=== PATIENT | female | born 1935 | race Caucasian/White ===

== ENCOUNTER 2016-11-17 10:36 | Emergency (ER) | payer MEDICARE, OTHER ==
--- NOTE | 2016-11-17 12:53 | UC ---
Complaint Female HPI - HPI Summary HPI Summary: pain and burning with urination for 1 week tried cranberry pills with out relief, no fevers, chills or back pain - History Of Current Complaint Chief Complaint: UCGU Stated Complaint: UTI-TYPE SYMPTOMS Time Seen by Provider: 11/17/16 12:41 Hx Obtained From: Patient ?: No Onset/Duration: Sudden Onset, Lasting Weeks - 1, Still Present Timing: Constant Severity Initially: Moderate Severity Currently: Moderate Pain Intensity: 6 Pain Scale Used: 0-10 Numeric Character: Burning Aggravating Factor(s): Urination Alleviating Factor(s): Nothing Associated Signs And Symptoms: Positive: Negative - Allergies/Home Medications Allergies/Adverse Reactions: Allergies Allergy/AdvReac Type Severity Reaction Status Date / Time No Known Allergies Allergy Verified 11/17/16 12:36 PMH/Surg Hx/FS Hx/Imm Hx Previously Healthy: No Endocrine History Of: Denies: Diabetes, Thyroid Disease Cardiovascular History Of: Reports: Cardiac Disorders - Tachycardia; A-fib, Hypertension - ON MEDS Respiratory History Of: Denies: COPD, Asthma GI/ History Of: Denies: Ulcer - Surgical History Surgical History: Yes Surgery Procedure, Year, and Place: Basal Cell removed from nose. 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 - Family History Known Family History: Positive: Hypertension - Social History Occupation: Retired Lives: With Family Alcohol Use: None Substance Use Type: None Smoking Status (MU): Former Smoker Amount Used/How Often: SOCIALLY When Did the Patient Quit Smoking/Using Tobacco: 45 YEARS AGO Review of Systems Constitutional: Negative Skin: Negative Eyes: Negative ENT: Negative Respiratory: Negative Cardiovascular: Negative Gastrointestinal: Negative Genitourinary: Dysuria, Frequency, Urgency Motor: Negative Neurovascular: Negative Musculoskeletal: Negative Neurological: Negative Psychological: Negative All Other Systems Reviewed And Are Negative: Yes Physical Exam Triage Information Reviewed: Yes Appearance: Well-Appearing, No Pain Distress, Well-Nourished Vital Signs: Initial Vital Signs Temp 97.3 F 11/17/16 12:31 Pulse 80 11/17/16 12:31 Resp 18 11/17/16 12:31 BP 171/90 11/17/16 12:31 Pulse Ox 99 11/17/16 12:31 Vital Signs Reviewed: Yes Eye Exam: Normal Eyes: Positive: Conjunctiva Clear ENT Exam: Normal ENT: Positive: Normal ENT inspection, Hearing grossly normal. Negative: Nasal congestion, Nasal drainage Dental Exam: Normal Neck exam: Normal Neck: Positive: Supple, Nontender, No Lymphadenopathy Respiratory Exam: Normal Respiratory: Positive: Chest non-tender, Lungs clear, Normal breath sounds, No respiratory distress, No accessory muscle use Cardiovascular Exam: Normal Abdominal Exam: Normal Abdomen Description: Positive: Nontender, No Organomegaly, Soft Musculoskeletal Exam: Normal Musculoskeletal: Positive: Strength Intact, ROM Intact, No Edema Neurological Exam: Normal Neurological: Positive: Alert, Muscle Tone Normal Psychological Exam: Normal Skin Exam: Normal Complaint Female Dx - Course Course Of Treatment: increase fluids, keflex, may use azo, follow blood pressure with pcp - Differential Dx/Diagnosis Differential Diagnosis/HQI/PQRI: Renal Colic, Ureteral Stone, Urinary Tract Infection Provider Diagnoses: UTI Discharge - Discharge Plan Condition: Stable Disposition: HOME Prescriptions: Cephalexin CAP* [Keflex CAP*] 500 mg PO BID #14 cap Patient Education Materials: Phenazopyridine (By mouth), Urinary Tract Infection in Women (ED), DASH Eating Plan (ED), Hypertension (ED) Referrals: [facility] [place] [facility] [Outside] - 2 Weeks Non Staff,Doctor [Primary Care Provider] -
[2016-11-17 13:29] VITALS: BP 159/93
--- NOTE | 2016-11-20 09:43 | UC ---
Progress - Progress Note Progress Note: >100k ecoli, culture prescribed & sensitive to cefazolin jonathan ayala md
== END 2016-11-17 13:30 | disposition home or self-care (01) ==
LOC: UCEAST 10:36
DX: N39.0 Urinary tract infection, site not specified (principal); I48.91 Unspecified atrial fibrillation; I10 Essential (primary) hypertension; Z85.828 Personal history of other malignant neoplasm of skin; Z87.891 Personal history of nicotine dependence
CPT/HCPCS: 81003; 87077; 87086; 87186; 99212; G0463

== ENCOUNTER 2017-02-24 15:53 | Emergency (ER) | payer MEDICARE, OTHER ==
[2017-02-24 15:58] VITALS: BP 135/77
--- NOTE | 2017-02-24 16:34 | UC ---
Complaint Female HPI - HPI Summary HPI Summary: Dysuria and frequency, feels just like prior UTIs, starting 5-6 days ago. In the past has had luck with taking cranberry pills and drinking fluids, tried it and her sx this time improved but did not resolve. Now sx are worsening. Denies fever, vomiting, or back pain. - History Of Current Complaint Hx Obtained From: Patient ?: No Onset/Duration: Gradual Onset, Lasting Days Timing: Constant Severity Initially: Moderate Severity Currently: Moderate Character: Burning Aggravating Factor(s): Urination Associated Signs And Symptoms: Negative: Fever, Back Pain, Vaginal Bleeding/ Discharge, Vomiting(# Of Episodes =) <Kylah Charles - Last Filed: 02/24/17 16:27> <Shawna Yo - Last Filed: 02/24/17 17:44> - History Of Current Complaint Chief Complaint: UCGU Stated Complaint: UTI Time Seen by Provider: 02/24/17 16:11 - Allergies/Home Medications Allergies/Adverse Reactions: Allergies Allergy/AdvReac Type Severity Reaction Status Date / Time No Known Allergies Allergy Verified 02/24/17 15:58 PMH/Surg Hx/FS Hx/Imm Hx Cardiovascular History: Atrial Fibrillation Cancer History: Lung Cancer - Surgical History Surgical History: Yes Surgery Procedure, Year, and Place: Basal Cell removed from nose. 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 - Family History Known Family History: Positive: Hypertension - Social History Alcohol Use: None Substance Use Type: None Smoking Status (MU): Former Smoker Amount Used/How Often: SOCIALLY When Did the Patient Quit Smoking/Using Tobacco: 45 YEARS AGO <Kylah Charles - Last Filed: 02/24/17 16:27> Review of Systems Constitutional: Negative Skin: Negative Eyes: Negative ENT: Negative Respiratory: Negative Cardiovascular: Negative Gastrointestinal: Negative Genitourinary: Dysuria, Urgency Motor: Negative Neurovascular: Negative Musculoskeletal: Negative Neurological: Negative Psychological: Negative All Other Systems Reviewed And Are Negative: Yes <Kylah Charles - Last Filed: 02/24/17 16:27> Physical Exam Triage Information Reviewed: Yes Appearance: Well-Appearing, No Pain Distress, Well-Nourished Vital Signs: Initial Vital Signs Temp 98.8 F 02/24/17 15:54 Pulse 75 02/24/17 15:54 Resp 12 02/24/17 15:54 BP 135/77 02/24/17 15:54 Pulse Ox 99 02/24/17 15:54 Vital Signs Reviewed: Yes Eye Exam: Normal, Other - PERRL Eyes: Positive: Conjunctiva Clear ENT Exam: Normal ENT: Positive: Normal ENT inspection, Hearing grossly normal, Pharynx normal, TMs normal Dental Exam: Normal Neck exam: Normal Neck: Positive: Supple, Nontender Respiratory Exam: Normal Respiratory: Positive: Chest non-tender, Lungs clear, Normal breath sounds, No respiratory distress, No accessory muscle use Cardiovascular Exam: Normal Cardiovascular: Positive: RRR, No Murmur Abdomen Description: Positive: Nontender. Negative: CVA Tenderness (R), CVA Tenderness (L) Neurological Exam: Normal Neurological: Positive: Alert Psychological Exam: Normal Skin Exam: Normal <Kylah Charles - Last Filed: 02/24/17 16:27> Vital Signs: Initial Vital Signs Temp 98.8 F 02/24/17 15:54 Pulse 75 02/24/17 15:54 Resp 12 02/24/17 15:54 BP 135/77 02/24/17 15:54 Pulse Ox 99 02/24/17 15:54 <Shawna Yo - Last Filed: 02/24/17 17:44> Complaint Female Dx - Differential Dx/Diagnosis Provider Diagnoses: UTI <Kylah Charles - Last Filed: 02/24/17 16:27> Discharge <Kylah Charles - Last Filed: 02/24/17 16:27> <Shawna Yo - Last Filed: 02/24/17 17:44> - Discharge Plan Condition: Stable Disposition: HOME Prescriptions: Ciprofloxacin HCl [Cipro 500 MG TAB] 500 mg PO BID #14 tab Patient Education Materials: Urinary Tract Infection in Women (ED) Referrals: Non Staff,Doctor [Medical Doctor] - Additional Instructions: Drink plenty of fluids and take your entire course of antibiotics. If you have worsening or recurrent symptoms, please return or see your primary care provider for a recheck. Attestation Statement User Type: Provider - I was available for consult. This patient was seen by the ROBY. The patient was not presented to, seen by, or examined by me. -Michel <Shawna Yo - Last Filed: 02/24/17 17:44>
--- NOTE | 2017-02-27 08:31 | ED ---
Progress - Progress Note Progress Note: urine culture is positive for ESBL E. coli. pt was discharged on Cipro which is resistant. the bacteria is sensitive to bactrim and Augmentin only. pt is to discontinue cipro. a prescription was sent to [facility] for Augmentin 875 mg #20 one po bid. Course/Dx - Diagnoses Provider Diagnoses: Acute UTI
== END 2017-02-24 16:36 | disposition home or self-care (01) ==
LOC: UCEAST 15:53
DX: N39.0 Urinary tract infection, site not specified (principal); Z87.891 Personal history of nicotine dependence; I48.91 Unspecified atrial fibrillation
CPT/HCPCS: 81003; 87077; 87086; 87184; 87186; 99212; G0463

== ENCOUNTER 2017-03-09 10:29 | Emergency (ER) | payer MEDICARE, OTHER ==
--- NOTE | 2017-03-09 13:01 | UC ---
Complaint Female HPI - HPI Summary HPI Summary: 81 YEAR OLD MALE PRESENTS WITH COMPLAINS OF URINARY FREQUENCY/URGENCY/PAIN. - History Of Current Complaint Chief Complaint: UCGU Stated Complaint: URINARY ISSUE Time Seen by Provider: 03/09/17 12:59 Hx Obtained From: Patient ?: No Onset/Duration: Sudden Onset Timing: Constant Severity Initially: Moderate Severity Currently: Moderate Pain Scale Used: 0-10 Numeric - 5 Character: Sharp Aggravating Factor(s): Movement Associated Signs And Symptoms: Positive: Negative - Allergies/Home Medications Allergies/Adverse Reactions: Allergies Allergy/AdvReac Type Severity Reaction Status Date / Time No Known Allergies Allergy Verified 03/09/17 11:57 PMH/Surg Hx/FS Hx/Imm Hx Previously Healthy: Yes - Surgical History Surgical History: Yes Surgery Procedure, Year, and Place: Basal Cell removed from nose. 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 - Family History Known Family History: Positive: Hypertension - Social History Alcohol Use: None Substance Use Type: None Smoking Status (MU): Former Smoker Amount Used/How Often: SOCIALLY When Did the Patient Quit Smoking/Using Tobacco: 45 YEARS AGO Review of Systems Constitutional: Negative Skin: Negative Eyes: Negative ENT: Negative Respiratory: Negative Cardiovascular: Negative Gastrointestinal: Negative Genitourinary: Dysuria, Frequency, Urgency Motor: Negative Neurovascular: Negative Musculoskeletal: Negative Neurological: Negative Psychological: Negative All Other Systems Reviewed And Are Negative: Yes Physical Exam Triage Information Reviewed: Yes Vital Signs: Initial Vital Signs Temp 36.8 C 03/09/17 11:53 Pulse 78 03/09/17 11:53 Resp 16 03/09/17 11:53 BP 163/108 03/09/17 11:53 Pulse Ox 100 03/09/17 11:53 Eye Exam: Normal ENT Exam: Normal Dental Exam: Normal Neck exam: Normal Neck: Positive: 1 Respiratory Exam: Normal Cardiovascular Exam: Normal Abdominal Exam: Normal Musculoskeletal Exam: Normal Neurological Exam: Normal Psychological Exam: Normal Skin Exam: Normal Complaint Female Dx - Differential Dx/Diagnosis Provider Diagnoses: URINARY FREQUENCY. URINARY URGENCY Discharge - Discharge Plan Condition: Stable Disposition: HOME Prescriptions: Nitrofurantoin Monohyd Macro [Macrobid] 100 mg PO BID #14 cap Patient Education Materials: Urinary Tract Infection in Women (ED) Referrals: No Primary Care Phys,NOPCP [Primary Care Provider] -
[2017-03-09 13:21] VITALS: BP 162/104
== END 2017-03-09 13:18 | disposition home or self-care (01) ==
LOC: UCEAST 10:29
DX: R35.0 Frequency of micturition (principal); R39.15 Urgency of urination; R30.0 Dysuria
CPT/HCPCS: 81003; 87077; 87086; 87186; 99212; G0463

== ENCOUNTER 2017-09-28 07:05 | Emergency (ER) | payer MEDICARE, OTHER ==
[2017-09-28 07:20] VITALS: BP 148/92
--- NOTE | 2017-09-28 07:34 | UC ---
Complaint Female HPI - HPI Summary HPI Summary: 1 WEEK OF DYSURIA, FREQUENCY AND URGENCY. NO FEVER, BACK PAIN OR NAUSEA. - History Of Current Complaint Stated Complaint: burning urination Time Seen by Provider: 09/28/17 07:19 Hx Obtained From: Patient Onset/Duration: Gradual Onset, Lasting Days, Still Present Severity Initially: Moderate Severity Currently: Moderate Pain Intensity: 0 Pain Scale Used: 0-10 Numeric Character: Burning Aggravating Factor(s): Urination Alleviating Factor(s): Nothing Associated Signs And Symptoms: Negative: Fever, Back Pain, Vaginal Discharge, Nausea, Vomiting(# Of Episodes =), Genital Swelling, Genital Blisters - Allergies/Home Medications Allergies/Adverse Reactions: Allergies Allergy/AdvReac Type Severity Reaction Status Date / Time No Known Allergies Allergy Verified 09/28/17 07:13 Home Medications: Home Medications Cranberry 400 mg PO DAILY 09/28/17 [History Confirmed 09/28/17] PMH/Surg Hx/FS Hx/Imm Hx Cardiovascular History: Cardiac Disease, Hypertension Cancer History: Lung Cancer - Surgical History Surgical History: Yes Surgery Procedure, Year, and Place: Basal Cell removed from nose. 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 - Family History Known Family History: Positive: Hypertension - Social History Alcohol Use: Weekly Substance Use Type: None Smoking Status (MU): Former Smoker Amount Used/How Often: SOCIALLY When Did the Patient Quit Smoking/Using Tobacco: 45 YEARS AGO Review of Systems Constitutional: Negative Respiratory: Negative Cardiovascular: Negative Gastrointestinal: Negative Genitourinary: Dysuria, Frequency, Urgency All Other Systems Reviewed And Are Negative: Yes Physical Exam Triage Information Reviewed: Yes Appearance: Well-Appearing, No Pain Distress, Well-Nourished Vital Signs: Initial Vital Signs Temp 98.0 F 09/28/17 07:16 Pulse 80 09/28/17 07:16 Resp 16 09/28/17 07:16 BP 148/92 09/28/17 07:16 Pulse Ox 97 09/28/17 07:16 Vital Signs Reviewed: Yes Eyes: Positive: Conjunctiva Clear ENT: Positive: Hearing grossly normal Neck: Positive: Supple Respiratory: Positive: No respiratory distress, No accessory muscle use Cardiovascular: Positive: Pulses Normal Abdomen Description: Positive: Nontender, Soft. Negative: CVA Tenderness (R), CVA Tenderness (L), Distended, Guarding Musculoskeletal: Positive: No Edema Neurological: Positive: Alert Psychological: Positive: Age Appropriate Behavior Skin: Negative: rashes Diagnostics - Laboratory Diagnostic Studies Completed/Ordered: urine dip sp gr. 1.015, 1+ protein, 1+ blood, 2+ leuks, pos nitrites Complaint Female Dx - Differential Dx/Diagnosis Provider Diagnoses: UTI Discharge - Discharge Plan Condition: Stable Disposition: HOME Prescriptions: Nitrofurantoin Macrocrystal [Nitrofurantoin] 100 mg PO BID #14 capsule Patient Education Materials: Urinary Tract Infection in Women (ED) Referrals: Evans Jaime DO [Doctor of Osteopathy] - If Needed
--- NOTE | 2017-09-30 15:41 | UC ---
- Progress Note Progress Note: Pt urine culture returned with ESBL. Unlikely sensitive to nitrofurantoin. May stop current anbx and needs to start Bactrim BID for 7 days. F/u with PCP in 10- 14 days to be sure of resolution
== END 2017-09-28 07:48 | disposition home or self-care (01) ==
LOC: UCEAST 07:05
DX: N39.0 Urinary tract infection, site not specified (principal); B96.20 Unspecified Escherichia coli [E. coli] as the cause of diseases classified elsewhere; I11.9 Hypertensive heart disease without heart failure; Z85.118 Personal history of other malignant neoplasm of bronchus and lung; Z87.891 Personal history of nicotine dependence
CPT/HCPCS: 81003; 87077; 87086; 87186; 99212; G0463

== ENCOUNTER 2017-10-12 07:58 | Emergency (ER) | payer MEDICARE, OTHER ==
[2017-10-12 08:13] VITALS: BP 168/100
--- NOTE | 2017-10-12 09:50 | UC ---
Drake Bustillo Jennifer[facility] 10[facility]12[facility]17 at 0901 . Complaint Female HPI - HPI Summary HPI Summary: In Room: The patient is an 81 year old female who complains of continued symptoms of a UTI since two weeks ago. 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 Her symptoms include increased frequency of urination , odor to urine, and a bit of pain sometimes when she urinates. These symptoms have been continuous since September 28, and the patient reports they appeared to improve a bit but not significantly. She denies fever, back pain, cough, diarrhea, nausea, abdominal pain, and chest pain. MD Note: PT was seen almost 2 weeks ago and was put on originally Macrodantin for UTI and her culture came back with ESPL resistance greater than 100,000, indeterminate on macrodantin. Her infection is sensitive to bactrim, and she is here because of continuing symptoms. Her vital signs are stable, afebrile. Her pulse ox is 99. BP is 168/100. She is on amlodipine. Nurse Note: pt seen recently for a uti 09/29/17 treated with bactrim arrives with continued sx - History Of Current Complaint Chief Complaint: UCGU Stated Complaint: RECHECK URINARY ISSUE Time Seen by Provider: 10/12/17 08:30 Hx Obtained From: Patient Onset/Duration: Gradual Onset, Lasting Weeks - two weeks, Still Present Timing: Constant Severity Initially: Mild Severity Currently: Mild Pain Intensity: 1 Pain Scale Used: 0-10 Numeric Aggravating Factor(s): Urination - Sometimes Alleviating Factor(s): Meds Associated Signs And Symptoms: Negative: Back Pain, Nausea - Allergies/Home Medications Allergies/Adverse Reactions: Allergies Allergy/AdvReac Type Severity Reaction Status Date / Time No Known Allergies Allergy Verified 10/12/17 08:03 PMH/Surg Hx/FS Hx/Imm Hx Previously Healthy: No - HTN, Tumor in lung - removed 3 years ago, hernia, urine infection - Surgical History Surgical History: Yes Surgery Procedure, Year, and Place: Basal Cell removed from nose. 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 - Family History Known Family History: Positive: Hypertension, Other - Lung CA - father - Social History Occupation: Retired Alcohol Use: Weekly Substance Use Type: None Smoking Status (MU): Former Smoker Amount Used/How Often: SOCIALLY When Did the Patient Quit Smoking/Using Tobacco: 45 YEARS AGO Review of Systems Constitutional: Negative - Fever Respiratory: Negative - Cough Cardiovascular: Negative - Chest pain Gastrointestinal: Negative - Abdominal pain, nausea, diarrhea Genitourinary: Dysuria - Not every time she urinates, Frequency Musculoskeletal: Negative - Back pain All Other Systems Reviewed And Are Negative: Yes Physical Exam - Summary Physical Exam Summary: Appearance: The patient is well-appearing, is in no pain distress, and is well- nourished. Eyes: Conjunctiva are clear. ENT: The hearing is grossly normal, the pharynx is normal, and the TMs are normal. There is no muffled or hoarse voice. Neck: The neck is supple and there is no lymphadenopathy. Respiratory: The chest is nontender. The lungs are clear, there are normal breath sounds, and there is no respiratory distress. Cardiovascular: Heart is regular rate and rhythm. There is no murmur. Abdomen: The abdomen is soft and nontender. NORMAL ADOMEN WITH NO CVA TENDERNESS OR SUPRAPUBIC TENDERNESS. There is no organomegaly. Bowel sounds: present Musculoskeletal: Strength is intact. The patient moves all extremities. Neurological: The patient is alert. Psychological: The patient displays age appropriate behavior Skin: Negative for rashes. Triage Information Reviewed: Yes Vital Signs: Initial Vital Signs Temp 97.7 F 10/12/17 08:05 Pulse 78 10/12/17 08:05 Resp 16 10/12/17 08:05 BP 168/100 10/12/17 08:05 Pulse Ox 99 10/12/17 08:05 Vital Signs Reviewed: Yes Complaint Female Dx - Course Course Of Treatment: Patient is an 81 year old female who is partially treated with Macrobid. Culture classifies macrobid as indeterminate. She will be started on Bactrim for 7 days. Elevated BP but has current hypertension diagnosis and treatment. Patient has been given an antibiotic because findings on physical examination and health history. The risks and benefits of antibiotic treatment have been discussed and patient has voiced understanding of these risks including the possibility of developing clostridium difficile enterocolitis. Medications have been included in the original chart and reviewed. - Differential Dx/Diagnosis Provider Diagnoses: Cystitis Discharge - Sign-Out/Discharge Documenting (check all that apply): Discharge - Discharge Plan Condition: Stable Disposition: HOME Patient Education Materials: Urinary Tract Infection in Women (DC) Referrals: [facility] [place] [facility] [Outside] Additional Instructions: Your blood pressure reading today was 168/100, indicating HYPERTENSION/ PREHYPERTENSION. This should be rechecked a few times in the next month. Establish with a new primary care provider and follow-up within 4 weeks for blood pressure readings and further evaluation. ~If you cant find a provider, try to check your blood pressure on your own and see if its above 120/80. If so , follow up for further evaluation and treatment. IF YOU NEED A HEALTH CARE PROVIDER CALL ROSAMARIA GOODWIN AT [facility] [place] IN THE NEXT FOUR DAYS: [phone] PLEASE SEEK CARE AT THE EMERGENCY DEPARTMENT IF SYMPTOMS WORSEN OR IF NEW SYMPTOMS DEVELOP. FOLLOW UP WITH YOUR PRIMARY CARE PHYSICIAN. As we discussed: Your urine infection has not been fully treated. Start Bactrim, twice a day, for 7 days. Call us in 4 days if you are not getting better on this new medication. Sooner if you have increased pain or temperature. The documentation as recorded by the Drake bishop Jennifer accurately reflects the service I personally performed and the decisions made by me, Josse Perla MD.
== END 2017-10-12 09:30 | disposition home or self-care (01) ==
LOC: UCEAST 07:58
DX: N30.90 Cystitis, unspecified without hematuria (principal); Z87.891 Personal history of nicotine dependence
CPT/HCPCS: 81003; 87077; 87086; 87186; 99212; G0463

== ENCOUNTER 2018-02-12 09:16 | Emergency (ER) | payer MEDICARE, OTHER ==
[2018-02-12 09:36] VITALS: BP 187/91
--- NOTE | 2018-02-12 09:57 | UC ---
Complaint Female HPI - HPI Summary HPI Summary: pt feels she has a UTI. has had same symps in past: frequency, burning take cranberry pills. Bactrim seems to work best - History Of Current Complaint Chief Complaint: UCGU Stated Complaint: POSS UTI Time Seen by Provider: 02/12/18 09:18 Hx Obtained From: Patient Onset/Duration: Gradual Onset Severity Initially: Mild Pain Intensity: 2 Character: Burning Aggravating Factor(s): Urination Alleviating Factor(s): Nothing Associated Signs And Symptoms: Negative: Fever, Back Pain, Vaginal Bleeding/ Discharge - Allergies/Home Medications Allergies/Adverse Reactions: Allergies Allergy/AdvReac Type Severity Reaction Status Date / Time No Known Allergies Allergy Verified 10/12/17 08:03 PMH/Surg Hx/FS Hx/Imm Hx Previously Healthy: Yes Cancer History: Lung Cancer - Surgical History Surgical History: Yes Surgery Procedure, Year, and Place: Basal Cell removed from nose. 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 - Family History Known Family History: Positive: Hypertension, Other - Lung CA - father - Social History Occupation: Retired Lives: With Family Alcohol Use: Daily Substance Use Type: None Smoking Status (MU): Former Smoker Amount Used/How Often: SOCIALLY When Did the Patient Quit Smoking/Using Tobacco: 45 YEARS AGO Review of Systems Constitutional: Negative Skin: Negative Respiratory: Negative Cardiovascular: Negative Gastrointestinal: Negative Genitourinary: Dysuria, Frequency, Urgency Neurological: Negative Psychological: Negative All Other Systems Reviewed And Are Negative: Yes Physical Exam Triage Information Reviewed: Yes Appearance: Well-Appearing, No Pain Distress, Well-Nourished Vital Signs: Initial Vital Signs Temp 98.1 F 02/12/18 09:26 Pulse 92 02/12/18 09:26 Resp 16 02/12/18 09:26 BP 187/91 02/12/18 09:26 Pulse Ox 98 02/12/18 09:26 Vital Signs Reviewed: Yes Respiratory Exam: Normal Cardiovascular Exam: Normal Abdominal Exam: Normal Abdomen Description: Positive: Nontender, Soft. Negative: CVA Tenderness (R), CVA Tenderness (L) Musculoskeletal Exam: Normal Psychological Exam: Normal Skin Exam: Normal Complaint Female Dx - Differential Dx/Diagnosis Differential Diagnosis/HQI/PQRI: Urinary Tract Infection, Other - vaginitis Provider Diagnoses: UTI Discharge - Sign-Out/Discharge Documenting (check all that apply): Patient Departure - d/c home - Discharge Plan Condition: Good Disposition: HOME Prescriptions: Sulfamethox/Trimethoprim DS* [Bactrim DS 800/160 TAB*] 1 tab PO BID #20 tab Referrals: No Primary Care Phys,NOPCP [Primary Care Provider] - Additional Instructions: drink plenty of fluids use probiotics as discussed cranberry pills may help - Billing Disposition and Condition Condition: GOOD Disposition: Home
--- NOTE | 2018-02-14 10:29 | UC ---
- Progress Note Progress Note: Urine culture final sensitive to Bactrim. No change Discharge - Sign-Out/Discharge Documenting (check all that apply): Post-Discharge Follow Up - Discharge Plan Condition: Good Disposition: HOME Prescriptions: Sulfamethox/Trimethoprim DS* [Bactrim DS 800/160 TAB*] 1 tab PO BID #20 tab Patient Education Materials: Urinary Tract Infection in Women (DC) Referrals: No Primary Care Phys,NOPCP [Primary Care Provider] - Additional Instructions: drink plenty of fluids use probiotics as discussed cranberry pills may help return here if no better 48h - Billing Disposition and Condition Condition: GOOD Disposition: Home
== END 2018-02-12 10:05 | disposition home or self-care (01) ==
LOC: UCEAST 09:16
DX: N39.0 Urinary tract infection, site not specified (principal); B96.20 Unspecified Escherichia coli [E. coli] as the cause of diseases classified elsewhere; Z85.118 Personal history of other malignant neoplasm of bronchus and lung; Z87.891 Personal history of nicotine dependence
CPT/HCPCS: 81003; 87077; 87086; 87186; 99212; G0463

== ENCOUNTER 2018-08-30 15:46 | Emergency (ER) | payer MEDICARE, OTHER ==
--- NOTE | 2018-08-30 16:13 | UC ---
Complaint Female HPI - HPI Summary HPI Summary: 3-4 DAYS OF DYSURIA, FREQUENCY AND URGENCY. NO FEVER, NAUSEA OR BACK PAIN. - History Of Current Complaint Chief Complaint: UCGU Stated Complaint: POSS UTI Time Seen by Provider: 08/30/18 15:59 Hx Obtained From: Patient Onset/Duration: Gradual Onset, Lasting Days, Still Present Severity Initially: Moderate Severity Currently: Mild Pain Intensity: 0 Pain Scale Used: 0-10 Numeric Character: Burning Aggravating Factor(s): Urination Associated Signs And Symptoms: Negative: Fever, Back Pain, Vaginal Bleeding/ Discharge, Nausea - Allergies/Home Medications Allergies/Adverse Reactions: Allergies Allergy/AdvReac Type Severity Reaction Status Date / Time No Known Allergies Allergy Verified 08/30/18 15:53 PMH/Surg Hx/FS Hx/Imm Hx Cardiovascular History: Hypertension Cancer History: Lung Cancer - Surgical History Surgical History: Yes Surgery Procedure, Year, and Place: Basal Cell removed from nose. 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 - Family History Known Family History: Positive: Hypertension, Other - Lung CA - father - Social History Alcohol Use: Daily Alcohol Amount: 1 glass/ per day Substance Use Type: None Smoking Status (MU): Former Smoker Amount Used/How Often: SOCIALLY When Did the Patient Quit Smoking/Using Tobacco: 45 YEARS AGO Review of Systems All Other Systems Reviewed And Are Negative: Yes Constitutional: Positive: Negative Respiratory: Positive: Negative Cardiovascular: Positive: Negative Gastrointestinal: Positive: Negative Genitourinary: Positive: Dysuria, Frequency, Urgency Physical Exam Triage Information Reviewed: Yes Appearance: Well-Appearing, No Pain Distress, Well-Nourished Vital Signs: Initial Vital Signs Temp 96.6 F 08/30/18 15:47 Pulse 86 08/30/18 15:47 Resp 18 08/30/18 15:47 Pulse Ox 97 08/30/18 15:47 Laboratory Tests 08/30/18 16:11 POC Urine Color Yellow POC Urine Clarity Cloudy POC Urine pH 6.0 POC Ur Specif [place] 1.025 POC Urine Protein 2+ A POC Ur Glucose (UA) Negative POC Urine Ketones Negative POC Urine Blood 2+ A POC Urine Nitrite Negative POC Urine Bilirubin Negative POC Urine Urobilinogen 0.2 POC U Leukocyte Esteras 2+ A Vital Signs Reviewed: Yes Eyes: Positive: Conjunctiva Clear ENT: Positive: Hearing grossly normal Neck: Positive: Supple Respiratory: Positive: No respiratory distress, No accessory muscle use Cardiovascular: Positive: Pulses Normal Abdomen Description: Positive: Nontender, Soft. Negative: CVA Tenderness (R), CVA Tenderness (L), Distended, Guarding Musculoskeletal: Positive: No Edema Neurological: Positive: Alert Psychological: Positive: Age Appropriate Behavior Skin: Negative: Rashes Complaint Female Dx - Differential Dx/Diagnosis Provider Diagnosis: UTI (urinary tract infection) Discharge - Sign-Out/Discharge Documenting (check all that apply): Patient Departure All imaging exams completed and their final reports reviewed: No Studies - Discharge Plan Condition: Stable Disposition: HOME Prescriptions: Sulfamethox/Trimethoprim DS* [Bactrim DS 800/160 TAB*] 1 tab PO BID #10 tab Patient Education Materials: Urinary Tract Infection in Women (ED) Referrals: No Primary Care Phys,NOPCP [Primary Care Provider] - Additional Instructions: CALL THE NUMBER BELOW FOR ASSISTANCE IN ESTABLISHING WITH A PCP An additional resource available to assist in finding the appropriate physician for your health care needs is [facility] ([facility]). You may contact them by calling [phone]. - Billing Disposition and Condition Condition: STABLE Disposition: Home
== END 2018-08-30 16:35 | disposition home or self-care (01) ==
LOC: UCEAST 15:46
DX: N39.0 Urinary tract infection, site not specified (principal); I10 Essential (primary) hypertension; Z87.891 Personal history of nicotine dependence
CPT/HCPCS: 81003; 87077; 87086; 87186; 99212; G0463

== ENCOUNTER 2019-05-07 07:51 | Emergency (ER) | payer MEDICARE, OTHER ==
--- NOTE | 2019-05-07 08:18 | UC ---
Complaint Female HPI - HPI Summary HPI Summary: 83 y/o female presents to the urgent care c/o urgency and frequency on urination for the past week. Yesterday she developed a mild cramping suprapubic pain on urination. Pt has been drinking water, but has not taken any medications to alleviate symptoms. She has had UTI in the past. Pt states she has PMHX of HTN and but her BP always gets very high when she sees the Dr. Pt denies fever, SOB, LIND, dizziness, visual changes, flank pain, vaginal discharge , abdominal pain, N/V/D. - History Of Current Complaint Chief Complaint: UCGU Stated Complaint: URINARY ISSUE Time Seen by Provider: 05/07/19 08:17 Hx Obtained From: Patient ?: No - Menopausal Onset/Duration: Gradual Onset, Lasting Weeks - 1 week, Still Present, Worse Since - last night Timing: Intermittent, Lasting Seconds Severity Initially: Mild Severity Currently: Mild Pain Intensity: 1 Pain Scale Used: 0-10 Numeric Character: Dull, Cramping Aggravating Factor(s): Urination Alleviating Factor(s): Nothing Associated Signs And Symptoms: Positive: Negative. Negative: Fever, Back Pain, Vaginal Discharge, Nausea, Vomiting(# Of Episodes =) Related Hx: Similar Episode/Dx as: - UTI - Risk Factors Ectopic Risk Factor: Negative Ovarian Torsion Risk Factor: Negative - Allergies/Home Medications Allergies/Adverse Reactions: Allergies Allergy/AdvReac Type Severity Reaction Status Date / Time No Known Allergies Allergy Verified 05/07/19 08:07 PMH/Surg Hx/FS Hx/Imm Hx Previously Healthy: Yes Cardiovascular History: Hypertension Cancer History: Lung Cancer - 6 years ago clear now - Surgical History Surgical History: Yes Surgery Procedure, Year, and Place: Basal Cell removed from nose. 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 - Family History Known Family History: Positive: Hypertension, Other - Lung CA - father - Social History Occupation: Retired Lives: With Family Alcohol Use: Daily Alcohol Amount: 1 glass/ per day Substance Use Type: None Smoking Status (MU): Former Smoker Amount Used/How Often: SOCIALLY When Did the Patient Quit Smoking/Using Tobacco: 45 YEARS AGO Review of Systems All Other Systems Reviewed And Are Negative: Yes Constitutional: Positive: Negative Skin: Positive: Negative Eyes: Positive: Negative ENT: Positive: Negative Respiratory: Positive: Negative Cardiovascular: Positive: Negative Gastrointestinal: Positive: Negative Genitourinary: Positive: Dysuria, Frequency, Urgency, Other - crmaping suprapubic pain on urination Motor: Positive: Negative Neurovascular: Positive: Negative Musculoskeletal: Positive: Negative Neurological: Positive: Negative Psychological: Positive: Negative Is Patient Immunocompromised?: No Physical Exam - Summary Physical Exam Summary: VITAL SIGNS: Reviewed. GENERAL: Patient is a well developed and nourished old female female who is sitting comfortable in the examining table. Patient is not in any acute respiratory distress. HEAD AND FACE: No signs of trauma. No ecchymosis, hematomas or skull depressions. No sinus tenderness. EYES: PERRLA, EOMI x 2, No injected conjunctiva, clear watery eyes, no nystagmus. No photophobia. EARS: Hearing grossly intact. Ear canals and tympanic membranes are within normal limits. MOUTH: pharynx with no erythema, no exudates,no palatal petechiae. no B/L tonsillar enlargement Uvula in midline. NECK: Supple, trachea is midline, no lymphadenopathy, no JVD, no carotid bruit, no c-spine tenderness, neck with full ROM. CHEST: Symmetric, no tenderness at palpation LUNGS: Clear to auscultation bilaterally. No wheezing or crackles. CVS: Regular rate and rhythm, S1 and S2 present, no murmurs or gallops appreciated. ABDOMEN: Soft, non-tender. No signs of distention. No rebound no guarding, and no masses palpated. Bowel sounds are normal. BACK:no scoliosis or lesions, non tender to palpation, No B/L CVA tenderness EXTREMITIES: FROM in all major joints, no edema, no cyanosis or clubbing. NEURO: Alert and oriented x 3. No acute neurological deficits. Speech is normal and follows commands. SKIN: Dry and warm Triage Information Reviewed: Yes Vital Signs: Initial Vital Signs Temp 97.2 F 05/07/19 08:00 Pulse 109 05/07/19 08:00 Resp 18 05/07/19 08:00 BP 0005/07/19 08:00 Pulse Ox 99 05/07/19 08:00 Complaint Female Dx - Course Course Of Treatment: 83 y/o female presents to the urgent care c/o urgency and frequency on urination for the past week. Yesterday she developed a mild cramping suprapubic pain on urination. Pt has been drinking water, but has not taken any medications to alleviate symptoms. She has had UTI in the past. Pt states she has PMHX of HTN and but her BP always gets very high when she sees the Dr. Pt denies fever, SOB, LIND, dizziness, visual changes, flank pain, vaginal discharge , abdominal pain, N/V/D. Hx obtained. Pt is hemodynamically stable, A&OX3, PE: WNL. UA results: Blood 2+, Nitrates: positive, Leukoesterase 1+. Pt Rx Bactrim PO x 7 days. Advised to increase fluid intake. Urine sent for culture if any abnormality Pt will be notified for further treatment. Pt advised If symptoms do not improve to return to the urgent care or f/u with PCP. Pt's BP is elevated today advised to decrease salt in diet, monitor BP and f/u with PCP for further management. Pt understood and agreed. Left the clinic ambulating. - Differential Dx/Diagnosis Differential Diagnosis/HQI/PQRI: Cervicitis, Renal Colic, Ureteral Stone, Urinary Tract Infection Provider Diagnosis: UTI (urinary tract infection), Uncontrolled hypertension Discharge ED - Sign-Out/Discharge Documenting (check all that apply): Patient Departure - D/C home All imaging exams completed and their final reports reviewed: No Studies - Discharge Plan Condition: Stable Disposition: HOME Prescriptions: Sulfamethox/Trimethoprim DS* [Bactrim DS 800/160 TAB*] 1 tab PO DAILY #14 tab Patient Education Materials: Urinary Tract Infection in Women (ED) Referrals: Monica Kruger MD [Primary Care Provider] - Additional Instructions: 1- Please take Bactrim PO as directed to alleviate urinary symptoms. Increase increase fluid intake. drink cranberry juice. 2-Urine sent for culture if any abnormality, you will be notified for further treatment. 3-If symptoms do not improve please return to the urgent care or f/u with your PCP. 4-Your BP is elevated today. Please take your BP medications and decrease salt in your diet, monitor BP and if it continues to be elevated please f/u with your PCP for further management. If you develop chest pain, dizziness, visual disturbances, SOB, or severe LIND please go immediately to the ER for further management - Billing Disposition and Condition Condition: STABLE Disposition: Home
[2019-05-07 08:35] VITALS: BP 160/90
--- NOTE | 2019-05-10 15:46 | UC ---
- Progress Note Progress Note: C& S report indicates E. Coli is sensitive to Bactrim. Pt has been RX's for bactrim. No changes. Course/Dx - Diagnoses Provider Diagnoses: UTI (urinary tract infection), Uncontrolled hypertension Discharge ED - Sign-Out/Discharge Documenting (check all that apply): Patient Departure All imaging exams completed and their final reports reviewed: No Studies - Discharge Plan Condition: Stable Disposition: HOME Prescriptions: Sulfamethox/Trimethoprim DS* [Bactrim DS 800/160 TAB*] 1 tab PO DAILY #14 tab Patient Education Materials: Urinary Tract Infection in Women (ED) Referrals: Monica Kruger MD [Primary Care Provider] - Additional Instructions: 1- Please take Bactrim PO as directed to alleviate urinary symptoms. Increase increase fluid intake. drink cranberry juice. 2-Urine sent for culture if any abnormality, you will be notified for further treatment. 3-If symptoms do not improve please return to the urgent care or f/u with your PCP. 4-Your BP is elevated today. Please take your BP medications and decrease salt in your diet, monitor BP and if it continues to be elevated please f/u with your PCP for further management. If you develop chest pain, dizziness, visual disturbances, SOB, or severe LIND please go immediately to the ER for further management - Billing Disposition and Condition Condition: STABLE Disposition: Home
== END 2019-05-07 08:40 | disposition home or self-care (01) ==
LOC: UCEAST 07:51
DX: N39.0 Urinary tract infection, site not specified (principal); I10 Essential (primary) hypertension; Z85.118 Personal history of other malignant neoplasm of bronchus and lung; Z87.891 Personal history of nicotine dependence
CPT/HCPCS: 81003; 87077; 87086; 87186; 99212; G0463

== ENCOUNTER 2021-08-07 11:49 | Observation (INO) ==
[~2021-08-07 11:49] MED LIST: Buffered Lidocaine 1% SYRIN 1 ml INTRADERM ONE; DiMENhydriNATE IV 50 mg/ml 1 ml VIAL IV PUSH ONE; Lactated Ringers 1000 ml BAG 1,000 ML IV SCH
[2021-08-07] MEDS ORDERED: ceFAZolin 2 GM PREMIX 2 GM/50 ML BAG ONE (12:34)
[2021-08-07] MEDS ORDERED: Rocuronium 50 mg VIAL 10 mg/ml 5 ml VIAL (50 mg) ONE ×3 (13:00→16:31)
[2021-08-07] MEDS ORDERED: Dexamethasone IV 4 MG/ML VIAL 1 ml VIAL ONE (13:00)
[2021-08-07] MEDS ORDERED: Lidocaine 2% PF 5 ML VIAL ONE (13:00)
[2021-08-07] MEDS ORDERED: Propofol 10 MG/ML 20 ML BTL ONE (13:00)
[2021-08-07] MEDS ORDERED: Ondansetron 4 mg VIAL 2 MG/ML 2 ml VIAL ONE (13:00)
[2021-08-07] MEDS ORDERED: fentaNYL 100 mcg/2 ml 50 MCG/ML VIAL ONE (13:01)
[2021-08-07] MEDS ORDERED: ROPIVACAINE 5 MG/ML 30 ML BTL (0.5%) ONE (13:38)
[2021-08-07] MEDS ORDERED: Lidocaine 1% MPF 5 ML VIAL ONE (13:38)
[2021-08-07] MEDS ORDERED: Vancomycin 1,000 MG VIAL ONE (13:47)
[2021-08-07] MEDS ORDERED: Midazolam 2 mg/2 ml VIAL 1 mg/ml 2 ml VIAL (2 mg) ONE (14:00)
[2021-08-07] MEDS ORDERED: Ketamine HCL 50 mg/ml 10 ml VIAL (500 MG) ONE (14:39)
[2021-08-07] MEDS ORDERED: diPHENhydraMINE 25 mg TAB PO PRN (15:05)
[2021-08-07] MEDS ORDERED: Magnesium Hydroxide LIQ 30 ML UDC PO PRN (15:05)
[2021-08-07] MEDS ORDERED: Lactulose 30 ml UDC PO PRN (15:05)
[2021-08-07] MEDS ORDERED: Ondansetron 4 mg VIAL 2 MG/ML 2 ml VIAL IV PRN (15:05)
[2021-08-07] MEDS ORDERED: Ondansetron ODT 4 mg TAB 4 MG TAB PO PRN (15:05)
[2021-08-07] MEDS ORDERED: Morphine 2 MG/ML SYRINGE IV PRN (15:05)
[2021-08-07] MEDS ORDERED: diPHENhydraMINE IV 50 MG/ML 1 ml VIAL (BENADRYL) IV PRN (15:05)
[2021-08-07] MEDS ORDERED: Glycopyrrolate IV 0.2 MG/ML 1 ML VIAL ONE (15:34)
[2021-08-07] MEDS ORDERED: Naloxone 0.4 mg VIAL 0.4 mg/ml 1 ml VIAL IV PRN (15:56)
[2021-08-07] MEDS ORDERED: HYDROmorphone 1 MG/1 ML SYRINGE IV PRN (15:56)
[2021-08-07] MEDS ORDERED: DiMENhydriNATE IV 50 mg/ml 1 ml VIAL IV PUSH PRN (15:56)
[2021-08-07] MEDS ORDERED: Lactated Ringers 1000 ml BAG 1,000 ML IV SCH (16:00)
[2021-08-07] MEDS ORDERED: Phenylephrine IV 10 MG/ML 1 ml VIAL ONE (16:10)
[2021-08-07] MEDS: Magnesium Hydroxide LIQ 30 ML UDC PO SCH (22:37)
[2021-08-07] MEDS: ceFAZolin 1 GM ADVAN 1 GM in NS 0.9% 50 ML 50 ML IVPB SCH (22:45)
[2021-08-08 06:17] LABS: Hematocrit 28 % (35-47); Hemoglobin 9.3 g/dL (12.0-16.0); Mean Platelet Volume 10.1 fL (7.4-10.4); Platelet Count 133 10^3/uL (150-450)
[2021-08-08 06:33] LABS: Calcium 7.8 mg/dL (8.6-10.3); Potassium 3.8 mmol/L (3.5-5.0); eGFR CKD-EPI 73.5 (>60)
[2021-08-08] MEDS: ceFAZolin 1 GM ADVAN 1 GM in NS 0.9% 50 ML 50 ML IVPB SCH ×2 (07:02→14:12)
[2021-08-08] MEDS: Vitamin THERAPEUTIC TAB PO SCH ×2 (08:16→08:44)
[2021-08-08] MEDS: Magnesium Hydroxide LIQ 30 ML UDC PO SCH (08:38)
[2021-08-08 11:18] VITALS: BP 133/79
[2021-08-08] MEDS ORDERED: Enoxaparin 40 MG/0.4 ML SYR SUBCUT SCH (12:00)
== END 2021-08-08 15:25 | disposition home or self-care (01) ==
LOC: AA 11:49 → INTOOBSV 11:49 → SSU 21:06
PROVIDERS: ADMIT Orthopaedic Surgery; ATTEND Orthopaedic Surgery